=== PATIENT | female | born 1970 ===

== ENCOUNTER → 2022-08-17 14:09 | Outpatient (CLI) | payer OTHER, SELFPAY | PROVIDERS: Visit Provider Nurse Practitioner Family | DX: R10.9 Unspecified abdominal pain (principal) | CPT/HCPCS: 87086 ==

== ENCOUNTER 2022-08-17 14:36 | Emergency (ER) | payer OTHER, SELFPAY ==
[2022-08-17 14:49] VITALS: BP 179/96; PULSE 95; RESP 15; TEMP 37.1; O2SAT 100; BMI 29.9
[2022-08-17 15:15] LABS: Appearance Urine UA CLEAR; Bilirubin Urine UA NEGATIVE (NEGATIVE); Color Urine UA YELLOW; Glucose Urine UA NEGATIVE (Negative); Ketones Urine UA NEGATIVE (NEGATIVE); Leukocyte Esterase Urine UA NEGATIVE (NEGATIVE); Nitrite Urine UA NEGATIVE (Negative); Occult Blood Urine UA 3+ (Negative); Protein Urine UA NEGATIVE (Negative)
[2022-08-17 15:30] LABS: Bacteria Urine None Seen; Culture Indicated Urine Cult Not Indicated; RBC Urine 10-30/HPF (0-5/HPF); Squamous Epithelial Cell Urine 5-10 /HPF (0-5/HPF); WBC Urine 1-5/HPF (0-5/HPF)
--- NOTE | 2022-08-17 16:09 | DI.CT.S_ITS ---
PROCEDURE: CT KIDNEY URETER BLADDER (KUB) INDICATIONS: LLQ and L flank pain w/ hematuria TECHNIQUE: Axial sections were acquired from the lung bases to the pubic symphysis. Coronal and sagittal reformats were performed. For radiation dose reduction, the following was used: automated exposure control, adjustment of mA and/or kV according to patient size. COMPARISON: None. FINDINGS: Image quality: Excellent. Lung bases: Unremarkable. Heart: No significant findings. URINARY: Right Kidney: No stones or hydronephrosis. Right Ureter: No hydroureter. Left Kidney: No stones or hydronephrosis. Left Ureter: There is a 3 mm calcification at the left base of bladder which most likely represents a distal left ureteral stone. There is very mild prominence of the left ureter. There are numerous other pelvic calcifications which are consistent with phleboliths. Bladder: Normal wall thickness. No stones. ABDOMEN: Liver: Low-density peripheral right lobe liver lesion most likely represents a hemangioma or cyst measuring 1.8 cm. Left lobe liver cyst. . Gallbladder: Partially contracted, within normal limits Biliary ducts: Unremarkable. Pancreas: Unremarkable. Spleen: Unremarkable. Adrenal Glands: Unremarkable. Stomach and Bowel: Mild diverticulosis without evidence of diverticulitis. Otherwise unremarkable. Peritoneum: No abnormal intraperitoneal fluid. No free air. Ventral Wall: No hernia. Abdominal Nodes: No enlarged retroperitoneal or mesenteric lymph nodes. Vessels: Aorta and inferior vena cava are normal in size. PELVIS: Pelvic Organs: Unremarkable. Pelvic Nodes: Unremarkable. Miscellaneous: No inguinal hernias are seen. Bones: Unremarkable. IMPRESSION: 1. There is a 3 mm calcification in the left pelvis which most likely is a distal ureteral stone. However, it can also be subjacent to the ureter. There is no associated left hydronephrosis. 2. No renal parenchymal stones. Dictated by: Santhosh Alvarez M.D. on 08/17/2022 at 16:33 Approved by: Santhosh Alvarez M.D. on 08/17/2022 at 16:37
--- NOTE | 2022-08-17 16:32 | ED_ITS ---
HPI - Female Genitourinary <Mike Waters PA-C - Last Filed: 08/17/22 17:14> General Chief complaint: Urogenital-Female Stated complaint: Poss kidney stone Time Seen by Provider: 08/17/22 16:04 Source: patient Mode of arrival: Ambulatory History of Present Illness HPI Narrative: This is a 52-year-old female presents emergency department due to left lower abdominal and left flank pain for the last 5 days. She also states that she feels she is unable to completely empty her bladder. She denies any dysuria, nausea, vomiting, vaginal discharge or bleeding, or any other concerning signs or symptoms. The pain comes and goes but states that is usually worse while she is urinating or soon after. Patient was seen at the walk-in clinic and sent here for further evaluation through possible kidney stone. Related Data Home Medications Medication Instructions Recorded Confirmed conjugated estrogens PO 08/17/22 08/17/22 duloxetine [Cymbalta] PO 08/17/22 08/17/22 progesterone micronized PO 08/17/22 08/17/22 Previous Rx's Medication Instructions Recorded hydrocodone 5 mg-acetaminophen 325 1 tab PO Q6H PRN pain #14 tabs 08/17/22 mg tablet tamsulosin 0.4 mg capsule (Flomax) 0.4 mg PO DAILY #7 caps 08/17/22 Allergies Allergy/AdvReac Type Severity Reaction Status Date / Time Sulfa (Sulfonamide Allergy Rash Verified 08/17/22 14:49 Antibiotics) Review of Systems <Mike Waters PA-C - Last Filed: 08/17/22 17:14> Review of Systems Narrative: GENERAL: Denies chills, fatigue, malaise, fever, sweats. HEENT: Denies sinus pain, ear pain, sore throat, difficulty swallowing, dizziness. RESPIRATORY: Denies dyspnea, cough, wheezing, hemoptysis, sputum. CARDIOVASCULAR: Denies chest pain, palpitations, orthopnea, edema, GASTROINTESTINAL: Reports left lower quadrant abdominal pain, Denies nausea, vomiting, diarrhea, constipation, melena. : Reports urinary hesitancy as well as left flank pain, Denies dysuria, frequency, incontinence, hematuria, urinary retention. MUSCULOSKELETAL: denies weakness, joint pain, or bony pain SKIN: Denies rash, skin lesions, or other NEUROLOGIC: Denies weakness, headache, numbness, change in speech, confusion, seizures, incoordination. PSYCHIATRIC: No concerning psychosocial issues. 12 point review of systems is negative except for those stated above Patient History <Mike Waters PA-C - Last Filed: 08/17/22 17:14> alcohol intake frequency: holidays/special occasions only Substance Use Type: does not use Exam <Mike Waters PA-C - Last Filed: 08/17/22 17:14> Narrative Exam Narrative: GENERAL: Well-developed patient, in mild distress. HEAD: Atraumatic. Normocephalic. EYES: Pupils equal round and reactive. Extraocular motions intact. No scleral icterus. No injection or drainage. ENT: Nose without bleeding, purulent drainage. Throat without erythema, tonsillar hypertrophy or exudate. Airway patent. NECK: Trachea midline. Non tender CARDIOVASCULAR: Regular rate and rhythm without murmurs, gallops, or rubs. RESPIRATORY: Clear to auscultation. Breath sounds equal bilaterally. No wheezes, rales, or rhonchi. GASTROINTESTINAL: Left lower quadrant tenderness to palpation. EXTREMITIES: No edema or joint tenderness. BACK: Left-sided CVA tenderness. NEURO: AOx3. SKIN: No rash or erythema of visible areas Initial Vital Signs Initial Vital Signs: Vital Signs Temperature 98.7 F 08/17/22 14:49 Pulse Rate 95 H 08/17/22 14:49 Respiratory Rate 15 08/17/22 14:49 Blood Pressure 179/96 H 08/17/22 14:49 Pulse Oximetry 100 08/17/22 14:49 Oxygen Delivery Method Room Air 08/17/22 14:49 <Anabel Ghosh DO - Last Filed: 08/18/22 09:46> Initial Vital Signs Initial Vital Signs: Vital Signs Temperature 98.7 F 08/17/22 14:49 Pulse Rate 95 H 08/17/22 14:49 Respiratory Rate 15 08/17/22 14:49 Blood Pressure 179/96 H 08/17/22 14:49 Pulse Oximetry 100 08/17/22 14:49 Oxygen Delivery Method Room Air 08/17/22 14:49 Course <Mike Waters PA-C - Last Filed: 08/17/22 17:14> Orders Ordered: ED Orders 08/17/22 15:00 Urinalysis and Microscopic Stat 08/17/22 16:09 CT kidney ureter bladder (KUB) Stat CBC Auto Diff [Complete Blood Count AUTO DIFF] Stat CMP [Comprehensive Metabolic Panel] Stat Vital Signs Vital signs: Vital Signs - 8 hr 08/17/22 14:49 08/17/22 17:07 Temperature 98.7 F Pulse Rate 95 H 89 Respiratory Rate 15 Blood Pressure 179/96 H 169/92 H Pulse Oximetry 100 98 Oxygen Delivery Method Room Air Room Air <Anabel Ghosh DO - Last Filed: 08/18/22 09:46> Orders Ordered: ED Orders 08/17/22 15:00 Urinalysis and Microscopic Stat 08/17/22 16:09 CT kidney ureter bladder (KUB) Stat CBC Auto Diff [Complete Blood Count AUTO DIFF] Stat CMP [Comprehensive Metabolic Panel] Stat Vital Signs Vital signs: Vital Signs - 8 hr 08/17/22 14:49 08/17/22 17:07 Temperature 98.7 F Pulse Rate 95 H 89 Respiratory Rate 15 Blood Pressure 179/96 H 169/92 H Pulse Oximetry 100 98 Oxygen Delivery Method Room Air Room Air MDM - Female Genitourinary <Mike Waters PA-C - Last Filed: 08/17/22 17:14> Lab Data 08/17/22 16:26 08/17/22 16:26 Labs: Lab Results 08/17/22 08/17/22 08/17/22 Range/Units 15:00 16:26 16:26 WBC 7.8 (4.5-11.0) X10^3/uL RBC 4.51 (4.0-5.2) X10^6/uL Hgb 13.0 (12.0-16.0) g/dL Hct 38.6 (36-46) % MCV 85.5 (80-100) fL MCH 28.9 (26-34) PG MCHC 33.8 (30-36) % RDW 14.1 (11.6-14.8) % Plt Count 390 (150-400) X10^3/uL Neut % (Auto) 67.0 (50-75) % Lymph % (Auto) 23.8 L (25-40) % Bowman % (Auto) 6.3 (3-14) % Eos % (Auto) 2.1 (2-4) % Baso % (Auto) 0.8 (0-2) % Neut # (Auto) 5200 (7146-7859) /uL Lymph # (Auto) 1900 (0002-4093) /uL Bowman # (Auto) 500 (0-900) /uL Eos # (Auto) 200 (0-450) /uL Baso # (Auto) 100 (0-100) /uL Sodium 138 (137-145) mmol/L Potassium 3.9 (3.4-5.1) mmol/L Chloride 105 (98-107) mmol/L Carbon Dioxide 24 (22-32) mmol/L BUN 12 (7-17) mg/dL Creatinine 0.83 (0.52-1.04) mg/dL Estimated GFR > 60 (>60) mL/min BUN/Creatinine Ratio 14.5 (6-22) Glucose 86 (70-100) mg/dL Calcium 9.2 (8.4-10.2) mg/dL Total Bilirubin 0.4 (0.2-1.3) mg/dL AST 22 (14-36) IU/L ALT 23 (<35) IU/L Alkaline Phosphatase 69 (38-126) U/L Total Protein 7.8 (6.3-8.2) g/dL Albumin 4.4 (3.5-5.0) g/dL Globulin 3.4 (1.7-4.1) g/dL Albumin/Globulin Ratio 1.3 (1.0-2.8) Urine Color Yellow Urine Appearance Clear Urine pH 6.0 (4.5-8.0) Ur Specific [place] 1.010 (1.000-1.035) Urine Protein Negative (Negative) Urine Glucose (UA) Negative (Negative) g/dL Urine Ketones Negative (NEGATIVE) Urine Occult Blood 3+ H (Negative) Urine Nitrate Negative (Negative) Urine Bilirubin Negative (NEGATIVE) Urine Urobilinogen 4.0 H (0.2) E.U./dL Ur Leukocyte Esterase Negative (NEGATIVE) Urine RBC 10-30/hpf H (0-5/HPF) Urine WBC 1-5/hpf (0-5/HPF) Ur Squamous Epith Cells 5-10 /hpf H (0-5/HPF) Urine Bacteria None seen (None) Ur Culture Indicated? Cult not indicated Point of Care Testing Test Results Negative Urine Dip Bedside Urine Glucose Negative Bedside Urine Bilirubin - Negative Bedside Urine Ketone - Negative Urine Specific [place] 1.015 Bedside Urine Occult Blood +++ Bedside Urine pH 6.0 Bedside Urine Protein - Negative Bedside Urine Urobilinogen +/- 1mg Bedside Urine Nitrite - Negative Bedside Urine Leukocytes - Negative Esterase Imaging Data CT scan - abdomen/pelvis: Radiologist's Impression: [address] [address] [address] Scan Report Signed Patient: Asiya Conway MR#: [id number] : 1970 Acct:[id number] Age/Sex: 52 / F Date of Service: 08/17/22 Loc: ED Accession Number: [id number] ?? Procedure: CT kidney ureter bladder (KUB) Ordering Provider: Mike Waters P.A-C PROCEDURE:? CT KIDNEY URETER BLADDER (KUB) ? INDICATIONS:? LLQ and L flank pain w/ hematuria ? TECHNIQUE:? Axial sections were acquired from the lung bases to the pubic symphysis.? Coronal and sagittal reformats were performed.? For radiation dose reduction, the following was used: ?automated exposure control, adjustment of mA and/or kV according to patient size.? ? COMPARISON:? None. ? FINDINGS:? Image quality:? Excellent.? ? Lung bases:? Unremarkable.? ? Heart:? No significant findings. ? URINARY: Right Kidney: ? No stones or hydronephrosis.? Right Ureter:? No hydroureter.? ? Left Kidney: ? No stones or hydronephrosis. Left Ureter:? There is a 3 mm calcification at the left base of bladder which most likely represents a distal left ureteral stone.? There is very mild prominence of the left ureter.? There are numerous other pelvic calcifications which are consistent with phleboliths. ? Bladder:? Normal wall thickness. No stones. ? ? ? ABDOMEN: Liver:? Low-density peripheral right lobe liver lesion most likely represents a hemangioma or cyst measuring 1.8 cm.? Left lobe liver cyst. .? ? Gallbladder:? Partially contracted, within normal limits? ? Biliary ducts:? Unremarkable.? ? Pancreas:? Unremarkable.? ? Spleen:? Unremarkable.? ? Adrenal Glands:? Unremarkable.? ? ? Stomach and Bowel:? Mild diverticulosis without evidence of diverticulitis.? Otherwise unremarkable. Peritoneum:? No abnormal intraperitoneal fluid.? No free air.? ? Ventral Wall: ? No hernia.? Abdominal Nodes:? No enlarged retroperitoneal or mesenteric lymph nodes.? Vessels:? Aorta and inferior vena cava are normal in size.? ? PELVIS: Pelvic Organs:? Unremarkable.? ? Pelvic Nodes: Unremarkable. Miscellaneous: No inguinal hernias are seen. ? ? ? Bones:? Unremarkable. ? IMPRESSION:? ? 1. There is a 3 mm calcification in the left pelvis which most likely is a distal ureteral stone.? However, it can also be subjacent to the ureter.? There is no associated left hydronephrosis. ? 2. No renal parenchymal stones.? Dictated by: Santhosh Alvarez M.D. on 08/17/2022 at 16:33 ? ? Approved by: Santhosh Alvarez M.D. on 08/17/2022 at 16:37 ? MDM Narrative Medical decision making narrative: MDM * differential diagnosis includes but not limited to UTI, kidney stone, ovarian torsion, ovarian cyst, gastrointestinal pain * Prior records reviewed: Patient was just seen in the walk-in clinic prior to arrival referred here for further evaluation and rule out kidney stone. * My lab interpretation: Labwork showed no evidence of infection, CMP and kidney function unremarkable. UA positive for hematuria most likely due to the renal stone. No evidence of UTI. * My imgaing interpretation: Left-sided kidney stone * Clinical Decision Rules/Scores evaluated: None * Independent discussions with: None ED Course: This is a 52-year-old female presents to the emergency department with left-sided flank pain. CT ordered which showed a left-sided kidney stone. 3 mm in size and suspect should pass on its own. Lab work unremarkable and low concern for any kind of infection. UA negative for UTIs. Patient already has a prescription for Zofran. We will prescribe a short course of pain medication to use as needed for the pain until the stone passes. Flomax also prescribed. Recommended plenty of oral fluids. Shared Decision Making: Discussed plan with patient who is comfortable with the plan. Social Considerations: None Disposition: Discharged to home <Anabel Ghosh, - Last Filed: 08/18/22 09:46> Lab Data Labs: Lab Results 08/17/22 08/17/22 08/17/22 Range/Units 15:00 16:26 16:26 WBC 7.8 (4.5-11.0) X10^3/uL RBC 4.51 (4.0-5.2) X10^6/uL Hgb 13.0 (12.0-16.0) g/dL Hct 38.6 (36-46) % MCV 85.5 (80-100) fL MCH 28.9 (26-34) PG MCHC 33.8 (30-36) % RDW 14.1 (11.6-14.8) % Plt Count 390 (150-400) X10^3/uL Neut % (Auto) 67.0 (50-75) % Lymph % (Auto) 23.8 L (25-40) % Bowman % (Auto) 6.3 (3-14) % Eos % (Auto) 2.1 (2-4) % Baso % (Auto) 0.8 (0-2) % Neut # (Auto) 5200 (8506-0917) /uL Lymph # (Auto) 1900 (6538-3506) /uL Bowman # (Auto) 500 (0-900) /uL Eos # (Auto) 200 (0-450) /uL Baso # (Auto) 100 (0-100) /uL Sodium 138 (137-145) mmol/L Potassium 3.9 (3.4-5.1) mmol/L Chloride 105 (98-107) mmol/L Carbon Dioxide 24 (22-32) mmol/L BUN 12 (7-17) mg/dL Creatinine 0.83 (0.52-1.04) mg/dL Estimated GFR > 60 (>60) mL/min BUN/Creatinine Ratio 14.5 (6-22) Glucose 86 (70-100) mg/dL Calcium 9.2 (8.4-10.2) mg/dL Total Bilirubin 0.4 (0.2-1.3) mg/dL AST 22 (14-36) IU/L ALT 23 (<35) IU/L Alkaline Phosphatase 69 (38-126) U/L Total Protein 7.8 (6.3-8.2) g/dL Albumin 4.4 (3.5-5.0) g/dL Globulin 3.4 (1.7-4.1) g/dL Albumin/Globulin Ratio 1.3 (1.0-2.8) Urine Color Yellow Urine Appearance Clear Urine pH 6.0 (4.5-8.0) Ur Specific [place] 1.010 (1.000-1.035) Urine Protein Negative (Negative) Urine Glucose (UA) Negative (Negative) g/dL Urine Ketones Negative (NEGATIVE) Urine Occult Blood 3+ H (Negative) Urine Nitrate Negative (Negative) Urine Bilirubin Negative (NEGATIVE) Urine Urobilinogen 4.0 H (0.2) E.U./dL Ur Leukocyte Esterase Negative (NEGATIVE) Urine RBC 10-30/hpf H (0-5/HPF) Urine WBC 1-5/hpf (0-5/HPF) Ur Squamous Epith Cells 5-10 /hpf H (0-5/HPF) Urine Bacteria None seen (None) Ur Culture Indicated? Cult not indicated Point of Care Testing Test Results Negative Urine Dip Bedside Urine Glucose Negative Bedside Urine Bilirubin - Negative Bedside Urine Ketone - Negative Urine Specific [place] 1.015 Bedside Urine Occult Blood +++ Bedside Urine pH 6.0 Bedside Urine Protein - Negative Bedside Urine Urobilinogen +/- 1mg Bedside Urine Nitrite - Negative Bedside Urine Leukocytes - Negative Esterase Discharge Plan Departure Patient Disposition: Home Clinical Impression: Kidney stone Instructions: DI for Kidney Stones Activity Restrictions/Additional Instructions: Thank you for coming to the [facility] Emergency Department today. As we discussed you have a kidney stone on left side. Your urine shows no evidence of infection and your labwork shows no evidence of infection as well. Please use the prescribed medications to help her get through the pain. May also use [id number] ibuprofen. The Flomax should help urinate. Please continue to drink plenty of oral fluids. The Zofran that you already have should help the nausea. This kidney stone should pass on its own. I hope you feel better soon. Prescriptions: New hydrocodone-acetaminophen 5-325 mg tablet 1 tab PO Q6H PRN (Reason: pain) Qty: 14 0RF tamsulosin [Flomax] 0.4 mg capsule 0.4 mg PO DAILY Qty: 7 0RF No Action progesterone micronized PO conjugated estrogens PO duloxetine [Cymbalta] PO Referrals: Miscellaneous,[facility] [Primary Care Provider] - Stand Alone Forms: Patient Portal/API <Anabel Ghosh DO - Last Filed: 08/18/22 09:46> Cosign ED Attending Cosignature Attestation: I was immediately available in the department for consultation. Case was discussed including imaging, labs, patient's urine shows RBCs but no clear signs of infection. Agree with current plan.
[2022-08-17 16:35] LABS: Add Manual Diff / Slide Review NO; Basophils Absolute Auto 100 /uL (0-100); Basophils Percent Auto 0.8 % (0-2); Eosinophils Absolute Auto 200 /uL (0-450); Eosinophils Percent Auto 2.1 % (2-4); Hematocrit 38.6 % (36-46); Lymphocytes Absolute Auto 1900 /uL (1100-4500); Lymphocytes Percent Auto 23.8 % (25-40); Mean Corpuscular HGB Conc 33.8 % (30-36); Mean Corpuscular Hemoglobin 28.9 PG (26-34); Mean Corpuscular Volume 85.5 fL (80-100); Monocytes Absolute Auto 500 /uL (0-900); Monocytes Percent Auto 6.3 % (3-14); Neutrophils Absolute Auto 5200 /uL (1500-7000); Platelet Count 390 X10^3/uL (150-400); Red Blood Cell Count 4.51 X10^6/uL (4.0-5.2); Red Cell Distribution Width 14.1 % (11.6-14.8); White Blood Cell Count 7.8 X10^3/uL (4.5-11.0)
[2022-08-17 16:59] LABS: Alanine Aminotransferase 23 IU/L (<35); Albumin 4.4 g/dL (3.5-5.0); Albumin Globulin Ratio 1.3 (1.0-2.8); Alkaline Phosphatase 69 U/L (38-126); Aspartate Aminotransferase 22 IU/L (14-36); BUN Creatinine Ratio 14.5 (6-22); Bilirubin Total 0.4 mg/dL (0.2-1.3); Blood Urea Nitrogen 12 mg/dL (7-17); Calcium 9.2 mg/dL (8.4-10.2); Carbon Dioxide 24 mmol/L (22-32); Chloride 105 mmol/L (98-107); Estimated Glomerular Filt Rate > 60 mL/min (>60); Globulin 3.4 g/dL (1.7-4.1); Glucose 86 mg/dL (70-100); HEMOLYSIS < 15 (0-50); Potassium 3.9 mmol/L (3.4-5.1); Sodium 138 mmol/L (137-145); Total Protein 7.8 g/dL (6.3-8.2)
[2022-08-17 17:07] VITALS: BP 169/92; PULSE 89; O2SAT 98
== END 2022-08-17 17:13 | disposition home or self-care (01) ==
PROVIDERS: Emergency Medicine; Emergency Provider Physician Assistant Medical
DX: N20.0 Calculus of kidney (principal); R10.9 Unspecified abdominal pain
CPT/HCPCS: 36415; 74176; 80053; 81001; 81003; 81025; 85025; 87086; 99282; 99284